=== PATIENT | female | born 1985 | race Caucasian/White ===

== ENCOUNTER → 2024-01-01 16:12 | Outpatient (REF) | payer BC, SELFPAY | LOC: WDC 16:12 | PROVIDERS: ATTENDING PHYSICIAN Advanced Practice Midwife; FAMILY PHYSICIAN Internal Medicine | DX: Z12.31 Encounter for screening mammogram for malignant neoplasm of breast (principal) | CPT/HCPCS: 77063; 77067 ==

== ENCOUNTER → 2025-01-06 16:14 | Outpatient (REF) | payer BC, SELFPAY | LOC: WDC 16:14 | PROVIDERS: ATTENDING PHYSICIAN Advanced Practice Midwife; FAMILY PHYSICIAN Internal Medicine | DX: Z12.31 Encounter for screening mammogram for malignant neoplasm of breast (principal) | CPT/HCPCS: 77063; 77067 ==

== ENCOUNTER → 2025-01-15 10:14 | Outpatient (REF) | payer BC, SELFPAY | LOC: WDC 10:14 | PROVIDERS: ATTENDING PHYSICIAN Advanced Practice Midwife; FAMILY PHYSICIAN Internal Medicine | DX: R92.8 Other abnormal and inconclusive findings on diagnostic imaging of breast (principal) | CPT/HCPCS: 76642 ==